=== PATIENT | male | born 1995 | race African-American/Black ===

== ENCOUNTER 2017-01-09 02:58 | Emergency (ER) | payer SELFPAY ==
[~2017-01-09] VITALS: Ht 188 cm; Wt 83.5 kg
[2017-01-09 03:07] VITALS: BP 132/82
[2017-01-09] MEDS ORDERED: AZITHROMYCIN 250 MG TABLET. PO ONE (03:45)
[2017-01-09] MEDS ORDERED: cefTRIAXone IM 250 MG VIAL IM ONE (03:45)
--- NOTE | 2017-01-09 03:48 | PHYS DOC ---
Past Medical History Past Medical History: No Pertinent History Past Surgical History: No Surgical History Alcohol Use: Occasionally Drug Use: Marijuana Adult General Chief Complaint Chief Complaint: SEXUALLY TRANSMITTED DISEASE HPI HPI Patient is a 21 year old male who presents with dysuria since sexual contact with chlamydia positive female. Symptoms for the past few days. He denies penile pain, testicle/scrotal pain or swelling, rash, abdominal pain, n/v, f/c. He came here to be tested and treated. Review of Systems Review of Systems Constitutional: Denies fever or chills [] Eyes: Denies change in visual acuity, redness, or eye pain [] HENT: Denies nasal congestion or sore throat [] Respiratory: Denies cough or shortness of breath [] Cardiovascular: No additional information not addressed in HPI [] GI: Denies abdominal pain, nausea, vomiting, bloody stools or diarrhea [] : Denies hematuria [] Musculoskeletal: Denies back pain or joint pain [] Integument: Denies rash or skin lesions [] Neurologic: Denies headache, focal weakness or sensory changes [] Endocrine: Denies polyuria or polydipsia [] Current Medications Current Medications Current Medications Medications (Trade) Dose Ordered Sig/Beau Start Time Stop Time Status Last Admin Dose Admin Azithromycin (Zithromax) 1,000 mg 1X ONCE 01/09/17 03:45 01/09/17 03:46 DC 01/09/17 03:36 1,000 MG Ceftriaxone Sodium (Rocephin Im) 250 mg 1X ONCE 01/09/17 03:45 01/09/17 03:46 DC 01/09/17 03:36 250 MG Allergies Allergies Allergies Coded Allergies Type Severity Reaction Last Updated Verified No Known Drug Allergies 01/09/17 No Physical Exam Physical Exam Constitutional: Well developed, well nourished, no acute distress, non-toxic appearance. [] HENT: Normocephalic, atraumatic, bilateral external ears normal, oropharynx moist, nose normal. [] Eyes: PERRLA, EOMI. [] Neck: Normal range of motion, supple. [] Cardiovascular: Extremities warm and well perfused [] Lungs & Thorax: Respirations even and unlabored [] Abdomen: soft, no tenderness. [] Skin: Warm, dry, no erythema, no rash. [] Back: Normal range of motion. [] Extremities: No tenderness, ROM intact. [] Neurologic: Alert and oriented X 3, normal motor function, normal sensory function, no focal deficits noted. [] Psychologic: Affect normal, judgement normal, mood normal. [] Current Patient Data Vital Signs Vital Signs Date Time Temp Pulse Resp B/P (MAP) Pulse Ox O2 Delivery O2 Flow Rate FiO2 01/09/17 03:07 97.7 66 16 99 Room Air 97.7 Lab Values Laboratory Tests Test 01/09/17 03:10 Urine Collection Type Unknown Urine Color Yellow Urine Clarity Clear Urine pH 6.0 Urine Specific [place] >=1.030 Urine Protein Negative mg/dL (NEG-TRACE) Urine Glucose (UA) Negative mg/dL (NEG) Urine Ketones (Stick) Negative mg/dL (NEG) Urine Blood Negative (NEG) Urine Nitrite Negative (NEG) Urine Bilirubin Negative (NEG) Urine Urobilinogen Dipstick 0.2 mg/dL (0.2 mg/dL) Urine Leukocyte Esterase Moderate (NEG) Urine RBC 6-10 /HPF (0-2) Urine WBC >40 /HPF (0-4) Urine Squamous Epithelial Cells Few /LPF Urine Bacteria Few /HPF (0-FEW) Urine Mucus Marked /LPF Course & Med Decision Making Course & Med Decision Making Pertinent Labs and Imaging studies reviewed. (See chart for details) He was treated empirically for STIs. Safe sex practices discussed. Return precautions given. He understands and agrees with plan. Dragon Disclaimer Dragon Disclaimer This electronic medical record was generated, in whole or in part, using a voice recognition dictation system. Departure Departure Impression: Primary Impression: STD exposure Disposition: HOME, SELF-CARE Condition: STABLE Referrals: NO PCP (PCP) Patient Instructions: Sexually Transmitted Disease, [id number] Additional Instructions: You were treated for possible gonorrhea and chlamydia. You will be called only for a positive test result. Follow up with your primary care doctor. Return for any concerns. Valentina ARMENDARIZ MD Jan 09, 2017 03:48
[2017-01-09 04:00] LABS: BILIRUBIN,URINE NEGATIVE (NEG); GLUCOSE,URINE NEGATIVE (NEG); NITRITE,URINE NEGATIVE (NEG); PROTEIN,URINE NEGATIVE (NEG-TRACE); UROBILINOGEN,URINE 0.2 mg/dL (0.2 mg/dL)
[2017-01-09 04:25] LABS: BACTERIA,URINE FEW /HPF (0-FEW); SQUAMOUS EPITHELIAL CELL,UR FEW /LPF; WBC,URINE >40 /HPF (0-4)
== END 2017-01-09 04:38 | disposition home or self-care (01) ==
LOC: ER 02:58
DX: Z20.2 Contact with and (suspected) exposure to infections with a predominantly sexual mode of transmission (principal); R30.0 Dysuria; F12.10 Cannabis abuse, uncomplicated
CPT/HCPCS: 81001; 87086; 87491; 87591; 96372; 99284; J0696; Q0144

== ENCOUNTER 2017-04-22 14:59 | Emergency (ER) | payer SELFPAY ==
[~2017-04-22] VITALS: Ht 182.9 cm; Wt 81.6 kg
[2017-04-22 15:08] VITALS: BP 124/61
--- NOTE | 2017-04-22 15:44 | RAD ---
Chest, 2 views, 04/22/2017: History: Flulike symptoms The heart size is normal. The lungs are clear. There is no evidence of pleural fluid. IMPRESSION: No acute cardiopulmonary abnormality is detected.
[2017-04-22 15:51] LABS: OBC FLU VALID
--- NOTE | 2017-04-22 16:05 | PHYS DOC ---
Past Medical History Past Medical History: No Pertinent History Past Surgical History: Other Additional Past Surgical Histo: LT KNEE Alcohol Use: Occasionally Drug Use: Marijuana Adult General Chief Complaint Chief Complaint: SORE THROAT HPI HPI Patient is a 21 year old male who presents with body aches subjective fevers and a sore throat that began 3 days ago. Patient denies any coughing or congestion. Review of Systems Review of Systems Constitutional: fever Eyes: Denies change in visual acuity, redness, or eye pain [] HENT:reports sore throat [] Denies nasal congestion Respiratory: Denies cough or shortness of breath [] Cardiovascular: No additional information not addressed in HPI [] GI: Denies abdominal pain, nausea, vomiting, bloody stools or diarrhea [] : Denies dysuria or hematuria [] Musculoskeletal: Denies back pain or joint pain [] Integument: Denies rash or skin lesions [] Neurologic: Denies headache, focal weakness or sensory changes [] Current Medications Current Medications Current Medications Medications (Trade) Dose Ordered Sig/Beau Start Time Stop Time Status Last Admin Dose Admin Acetaminophen (Tylenol) 650 mg 1X ONCE 04/22/17 16:15 04/22/17 16:16 Ibuprofen (Motrin) 800 mg 1X ONCE 04/22/17 16:15 04/22/17 16:16 Prednisone (Prednisone) 60 mg 1X ONCE 04/22/17 16:15 04/22/17 16:16 Allergies Allergies Allergies Coded Allergies Type Severity Reaction Last Updated Verified No Known Drug Allergies 01/09/17 No Physical Exam Physical Exam Constitutional: Well developed, well nourished, no acute distress, non-toxic appearance. [] HENT: Normocephalic, atraumatic, bilateral external ears normal, oropharynx moist, no oral exudates, nose normal. [] +2 tonsils with mild erythema +2 anterior cervical adenopathy Eyes: PERRLA, EOMI, conjunctiva normal, no discharge. [] Neck: Normal range of motion, no tenderness, supple, no stridor. [] Cardiovascular:Heart rate regular rhythm, no murmur [] Lungs & Thorax: Bilateral breath sounds clear to auscultation [] Abdomen: Bowel sounds normal, soft, no tenderness, no masses, no pulsatile masses. [] Skin: Warm, dry, no erythema, no rash. [] Back: No tenderness, no CVA tenderness. [] Extremities: No tenderness, no cyanosis, no clubbing, ROM intact, no edema. [] Neurologic: Alert and oriented X 3, normal motor function, normal sensory function, no focal deficits noted. [] Psychologic: Affect normal, judgement normal, mood normal. [] Current Patient Data Vital Signs Vital Signs Date Time Temp Pulse Resp B/P (MAP) Pulse Ox O2 Delivery O2 Flow Rate FiO2 04/22/17 15:08 102.7 104 18 98 Room Air 102.7 Lab Values Laboratory Tests Test 04/22/17 15:00 Influenza Type A Antigen Negative (NEGATIVE) Influenza Type B Antigen Negative (NEGATIVE) EKG EKG [] Radiology/Procedures Radiology/Procedures [] Course & Med Decision Making Course & Med Decision Making Pertinent Labs and Imaging studies reviewed. (See chart for details) This is a 21-year-old male patient presenting to the ED today with a fever and sore throat and body aches for 3 days. Temperature on arrival was 102.7. Chest x -ray was negative for any acute findings, strep test was negative, influenza A and B were negative. Patient's symptoms are likely viral. Discharged with Tylenol every 4 hours Motrin every 6 hours. Discharged with prednisone for 4 days. He was given first dose in the ED. Instructed to push fluids. Saltwater gargles also recommended. Follow-up with PCP in 1-2 weeks.. Dragon Disclaimer Dragon Disclaimer This electronic medical record was generated, in whole or in part, using a voice recognition dictation system. Departure Departure Impression: Primary Impression: Acute pharyngitis Additional Impression: Fever Disposition: 01 HOME, SELF-CARE Condition: STABLE Referrals: NO PCP (PCP) Follow-up in one week Patient Instructions: Fever, Adult, [id number], Viral Pharyngitis Additional Instructions: You were seen for fever body aches and a sore throat. Your chest x-ray was negative for any acute findings. Your rapid strep test was negative, you are negative for influenza A or B. Your symptoms are likely viral. Push fluids, rest. Take Tylenol every 4 hours and Motrin every 6 hours. Ensure you complete the prescribed prednisone. Follow-up with your doctor in one week. Scripts Prednisone (PREDNISONE) 50 Mg Tablet 1 TAB PO DAILY, #4 TAB Prov: MUTUNGA,VENESSA POLICY INTERN 04/22/17 Acetaminophen (TYLENOL) 325 Mg Tablet 1-2 TAB PO QID, #60 TAB 2 Refills Prov: VENESSA LEMUS APRN 04/22/17 Ibuprofen (IBUPROFEN) 800 Mg Tablet 800 MG PO PRN Q6HRS Y for INFLAMMATION, #30 TAB Prov: VENESSA LEMUS APRN 04/22/17 Problem Qualifiers Primary Impression: Acute pharyngitis Pharyngitis/tonsillitis etiology: unspecified etiology Qualified Codes: J02.9 - Acute pharyngitis, unspecified Additional Impression: Fever Fever type: unspecified Qualified Codes: R50.9 - Fever, unspecified VENESSA LEMUS APRN Apr 22, 2017 16:05
[2017-04-22] MEDS ORDERED: ACET325T9 PO (16:13)
[2017-04-22] MEDS ORDERED: IBUP-1060 PO (16:13)
[2017-04-22] MEDS ORDERED: PRED50TA PO (16:13)
[2017-04-22] MEDS ORDERED: ACETAMINOPHEN 650 MG/20.3 ML SOLUTION. PO ONE (16:15)
[2017-04-22] MEDS ORDERED: predniSONE 20 MG TABLET PO ONE (16:15)
[2017-04-22] MEDS ORDERED: IBUPROFEN 800 MG TABLET. PO ONE (16:15)
[2017-04-23 07:42] LABS: NEGATIVE OBC STREP NEG; POSITIVE OBC STREP POS
== END 2017-04-22 16:26 | disposition home or self-care (01) ==
LOC: ER 14:59
DX: J02.9 Acute pharyngitis, unspecified (principal); R50.9 Fever, unspecified; M79.1 Myalgia
CPT/HCPCS: 71020; 87070; 87804; 87880; 99285; J7512